=== PATIENT | male | born 1935 | race Caucasian/White ===

== ENCOUNTER → 2017-01-25 | Outpatient (CLI) | payer MEDICARE ==
[~2017-01-25] MED LIST: ATOR10TA9 PO; CHOL500050 PO; DIGO125T PO; FENO145T32 PO; FENO160T PO; LOSA100T6 PO; METO50TA82 PO; NATE120T2 PO; OMEG1CAP2 PO; PIOG45TA20 PO; TRAM50TA2 PO
== END | disposition home or self-care (01) ==
LOC: CVU 13:50
PROVIDERS: ATTEND Internal Medicine Cardiovascular Disease
DX: M79.604 Pain in right leg (principal); M79.605 Pain in left leg; I10 Essential (primary) hypertension; E11.9 Type 2 diabetes mellitus without complications; E78.00 Pure hypercholesterolemia, unspecified; I48.91 Unspecified atrial fibrillation
CPT/HCPCS: 93922

== ENCOUNTER 2020-11-19 13:25 | Emergency (ER) | payer MEDICARE ==
[~2020-11-19] VITALS: Ht 167.6 cm; Wt 84.7 kg
[~2020-11-19 13:25] MED LIST changes: -DIGO125T PO; +DIGO125T85 PO; +LOSA100T14 PO; -LOSA100T6 PO
[2020-11-19] MEDS ORDERED: DILT-86 PO (13:42)
[2020-11-19] MEDS ORDERED: METO25TA91 PO (13:42)
[2020-11-19] MEDS ORDERED: INSU100V12 SC ×2 (13:42)
[2020-11-19] MEDS ORDERED: [UNRECOGNIZED DRUG - OTHER] PO (13:42)
[2020-11-19] MEDS ORDERED: SODIUM CHLORIDE FLUSH 10ML SYR IVF ONE (14:00)
[2020-11-19] MEDS ORDERED: ASPIRIN 81 MG TABLET CHEW PO ONE (14:00)
[2020-11-19 14:29] LABS: BASOPHILS % (AUTO) 0 % (0-1); EOSINOPHILS % (AUTO) 1 % (1-7); LYMPHOCYTES % (AUTO) 25 % (22-44); MEAN CORPUSCULAR HEMOGLOBIN 31.4 pg (27.5-34.5); MEAN CORPUSCULAR HGB CONC 34.6 g/dL (33.2-36.2); MEAN PLATELET VOLUME 7.2 fL (7.4-10.4); MONOCYTES % (AUTO) 12 % (2-9); NEUTROPHILS % (AUTO) 62 % (42-75); PLATELET COUNT 151 x10^3/uL (130-400); RED BLOOD COUNT 4.69 x10^6/uL (4.38-5.82); RED CELL DISTRIBUTION WIDTH 13.8 % (9.4-14.8)
[2020-11-19 14:35] LABS: ALBUMIN 2.9 g/dL (3.4-5.0); CALCIUM 8.8 mg/dL (8.5-10.1); CHLORIDE 105 mmol/L (98-107)
[2020-11-19 14:44] LABS: ALANINE AMINOTRANSFERASE 20 U/L (12-78); ALKALINE PHOSPHATASE 92 U/L (45-117); ANION GAP 8 mmol/L (5-15); BILIRUBIN,TOTAL 0.9 mg/dL (0.2-1.0); CREATININE 1.26 mg/dL (0.7-1.3); TOTAL PROTEIN 7.1 g/dL (6.4-8.2); TROPONIN I < 0.015 ng/mL (0.000-0.045)
[2020-11-19 16:19] LABS: TROPONIN I < 0.015 ng/mL (0.000-0.045)
[2020-11-19 16:34] VITALS: BP 150/74
--- NOTE | 2020-11-19 16:48 | NUR ---
Patient given discharge instructions and they have confirmed that they understand the instructions. Patient ambulatory with steady gait. NAD, all questions answered appropriately, denies additional needs at this time. No personal belongings left in room after discharge.
== END 2020-11-19 16:49 | disposition home or self-care (01) ==
LOC: ED 15:00
DX: R07.89 Other chest pain (principal); R00.0 Tachycardia, unspecified; I48.91 Unspecified atrial fibrillation; I10 Essential (primary) hypertension; E11.9 Type 2 diabetes mellitus without complications; M19.90 Unspecified osteoarthritis, unspecified site; Z95.0 Presence of cardiac pacemaker
CPT/HCPCS: 36415; 71045; 80053; 83690; 83880; 84484; 85025; 93005; 99285